=== PATIENT | male | born 1965 | race Caucasian/White ===

== ENCOUNTER 2016-12-01 18:15 | Observation (INO) | payer BC ==
[2016-12-01] MEDS ORDERED: Sodium Chloride 0.9% 1,000 ML PRIMARY IV ONE (18:21)
[2016-12-01] MEDS ORDERED: NITROGLYCERIN 0.4 MG SL TAB (BOTTLE OF 3) SL ONE ×2 (18:21→18:22)
[2016-12-01] MEDS ORDERED: MORPHINE SULFATE 4 MG/1 ML IVP ONE (18:21)
[2016-12-01] MEDS ORDERED: ONDANSETRON 4 MG/2 ML VIAL IVP ONE (18:21)
--- NOTE | 2016-12-01 18:24 | PDOC ---
Chest Pain HPI - General Chief Complaint: Chest Pain Stated Complaint: CHEST PAIN Date Seen by Provider: 12/01/16 Time Seen by Provider: 18:19 Source: Patient, Spouse Exam Limitations: POSITIVE: No limitations Treatment Prior to Arrival: REPORTS: Aspirin Nurse's Notes Reviewed & Considered: Yes - History of Present Illness Initial Comments: This very pleasant 51-year-old male comes in today with a chief complaint of chest pain. Patient with chest pain and shortness of breath that is substernal with radiation into his back and shoulder. He does have associated shortness of breath. His symptoms began yesterday and have continued and escalated today. He did take 4 baby aspirin over the course of the day today. He has a headache, denies cough, he denies any nausea vomiting or diarrhea, no hematuria or dysuria, no rashes. Body Location Affected: REPORTS: Head, Chest Timing: REPORTS: Intermittent, Getting Worse Duration: >24 hours Severity: Moderate Context: REPORTS: Rest Quality: REPORTS: "Pain", Sharpness, Stabbing, Throbbing Radiation: REPORTS: Neck (L), Shoulder (L), Back Associated Symptoms: REPORTS: Shortness of Breath, Hurts to Breathe Modifying Factors: improves with: None Reported Similar Symptoms Previously: No Recently seen/treated/hospitalized: No Any Prior Injuries Related to Current Complaint?: No - Patient Home Medications Home Medications: Home Medications NK [No Home Medications Reported] 12/01/16 - Patient Allergies Allergies/Adverse Reactions: Allergies Allergy/AdvReac Type Severity Reaction Status Date / Time No Known Allergies Allergy Verified 12/01/16 18:41 ROS - Limitations ROS Limitations: No Limitations Constitution: REPORTS: Denies Symptoms Cardiovascular: REPORTS: Chest Pain Respiratory: REPORTS: Hurts To Breathe, Shortness Of Breath Neurological: REPORTS: Headache Gastrointestinal: REPORTS: Denies GI Symptoms Endocrine: REPORTS: Denies Symptoms Musculoskeletal: REPORTS: Denies MS Symptoms Genitourinary: REPORTS: Denies Symptoms Eyes: REPORTS: Denies Symptoms ENT: REPORTS: Denies Symptoms Skin: REPORTS: Denies Skin Symptoms Lympathic: REPORTS: Denies Lympathic Symptoms Immunologic: POSITIVE: Denies Symptoms Psychiatric: POSITIVE: Denies Psych Symptoms Chest Pain PE - General Appearance General Appearance: REPORTS: Alert, Cooperative, No Acute Distress, No Evidence of Trauma - HEENT HEENT: POSITIVE: Head Inspection Nml, Eyes Inspection Nml, Ears Inspection Nml, Nose Inspection Nml, Oral/Dental Inspect. Nml, Pharynx Inspect. Nml, PERRL, EOMI - Neck Neck: REPORTS: Normal Inspection, No Carotid Bruit - Respiratory Respiratory: REPORTS: No Respiratory Distress, Breath Sounds Normal, Chest Non- Tender - Cardiovascular Cardiovascular: REPORTS: Regular Rate and Rhythm, Heart Sounds Normal, Equal Pulses, Strong Pulses, No Murmur, No Gallop, No Friction Rub, No JVD - Abdomen Abdomen: Soft: (All Quadrants), Normal Bowel Sounds: (All Quadrants), Denies Tenderness: (All Quadrants) - Skin Skin: REPORTS: Intact, Normal For Race, Warm, Dry, No Rash - Extremities Extremity: Non-Tender: (All Extremities), Normal ROM: (All Extremities), Normal Inspection: (All Extremities), Pelvis Stable: (All Extremities) - Neurological / Psychological Neurological: POSITIVE: Oriented X3, Motor Normal, Sensation Normal Chest Pain Progress - Results Reviewed by me Xrays/CTs/US Reviewed by me: Yes Discussed with Radiologist: Yes Lab Results Reviewed: Yes Lab Results:: Laboratory Results 12/01/16 12/01/16 12/01/16 Range/Units 18:29 18:30 18:36 WBC 8.40 (4.8-10.8) 10^3/uL RBC 5.45 (4.70-6.10) 10^6/uL Hgb 16.7 (14.0-18.0) g/dL Hct 49.1 (42.0-52.0) % MCV 90.1 H (80-90) FL MCH 30.6 (27-31) PG MCHC 34.0 (33-37) g/dL RDW Std Deviation 42.8 (39-50) fL RDW Coeff of [place] 13.1 (11.5-14.5) % Plt Count 192 (140-350) 10*3/uL MPV 11.4 (7.4-12.2) FL Immature Gran % (Auto) 0.2 (0-5) % Neut % (Auto) 60.0 (50-80) % Lymph % (Auto) 27.7 (10-50) % [place] % (Auto) 7.9 (5-15) % Eos % (Auto) 2.1 (0-8) % Baso % (Auto) 2.1 H (0-1) % Immature Gran # (Auto) 0.02 10*3/UL Neut # (Auto) 5.03 10*3/UL Lymph # (Auto) 2.33 10*3/uL [place] # (Auto) 0.66 (0.3-0.8) 10*3/UL Eos # (Auto) 0.18 10*3/UL Baso # (Auto) 0.18 10*3/UL WBC Morphology Comment Normal morphology (NORM) Plt Morphology Comment Normal morphology (NORM) RBC Morph Comment Normal morphology (NORM) D-Dimer 0.74 H (0.00-0.59) mg/L Sodium 139 (135-145) meq/L Potassium 3.9 (3.8-5.2) meq/L Chloride 103 (98-112) meq/L Carbon Dioxide 25 (23-33) meq/L Anion Gap 11 (5-20) BUN 23 H (7-22) mg/dL Creatinine 1.1 (0.70-1.50) mg/dL Estimated GFR > 60 (>60 ml/min/1.73m(2)) BUN/Creatinine Ratio 20.90 H (6-20) Glucose 180 H (78-110) mg/dL Calculated Osmolality 296.0 H (267-292) mOsm/kg Calcium 9.0 (8.7-10.7) mg/dL Magnesium 2.1 (1.6-2.4) mg/dL Total Bilirubin 0.7 (0.3-1.2) mg/dL AST 45 (21-57) IU/L ALT 56 (21-72) IU/L Alkaline Phosphatase 114 (38-126) IU/L CK-MB (CK-2) 1.75 (0.00-5.00) NG/ML Troponin I 0.025 (< 0.040) ng/mL C-Reactive Protein 0.6 (0.0-0.9) mg/dL NT-Pro-B Natriuret Pep 488 H (0-125) PG/ML Total Protein 7.4 (6.1-8.0) g/dL Albumin 4.2 (3.5-4.8) g/dL Globulin 3.2 (2.50-4.10) g/dL Albumin/Globulin Ratio 1.30 (1.3-2.0) mg/g TSH 2.69 (0.2700-4.2000) uIU/mL Free T4 1.18 (0.93-1.71) ng/dL EKG Interpretation:: POSITIVE: Normal Sinus Rhythm - Patient's Progress Pain Medication Addressed: POSITIVE: Yes Re-Examine Time: 20:44 Status: POSITIVE: Improved MDM / ED Course: Patient was examined, an IV started, blood drawn and sent to lab for studies, radiographic and EKG studies were obtained. Patient's pain did improve and seem to be improved best with positioning. Findings: D-dimer is elevated, CBC is unremarkable, comprehensive metabolic panel shows elevated glucose, EKG shows a sinus rhythm per my interpretation, troponin is normal, TSH is normal. CT for PE protocol results are pending. Assessment: Chest pain with equivocal EKG and cardiac enzyme, positive risk factors. Plan: Admission for chest pain and rule out myocardial infarction. Quality Measure Initiative: CP/AMI: POSITIVE: EKG, ASA Quality Measure Initiative: CAP: POSITIVE: CXR or CT - Consult Consulting MD will see pt:: POSITIVE: In ED, [facility] [place] Admit Counseled: POSITIVE: Patient, Family, RE: Lab Results, RE: Radiology Results, RE : DX Patient Care Time - Estimated PCT Patient Care Time (In Minutes): 45 Vital Signs - Recent Vital Signs Vital Signs: Vital Signs (Last 8 hours) Temp Pulse Resp BP Pulse Ox 12/01/16 18:15 97.5 F 105 H 18 246/179 96 - VS Reviewed Vital Signs Reviewed: Yes Discharge Clinical Impression: Chest pain Discharge Disposition: Admit to Inpatient Condition: Good Follow Up With: NONE,NONE [Primary Care Provider] - Date Decision to Admit to Inpatient: 12/01/16 Time Decision to Admit to Inpatient: 20:28
[2016-12-01] MEDS ORDERED: IPRATROPIUM/ALBUTEROL SULFATE 3 ML NEB NEB ONE (18:36)
[2016-12-01 18:44] LABS: BASOPHILS # (AUTO) 0.18 10*3/UL; BASOPHILS % (AUTO) 2.1 % (0-1); EOSINOPHILS # (AUTO) 0.18 10*3/UL; EOSINOPHILS % (AUTO) 2.1 % (0-8); HEMATOCRIT 49.1 % (42.0-52.0); HEMOGLOBIN 16.7 g/dL (14.0-18.0); LYMPHOCYTES # (AUTO) 2.33 10*3/uL; MEAN CORPUSCULAR HEMOGLOBIN 30.6 PG (27-31); MEAN CORPUSCULAR VOLUME 90.1 FL (80-90); MEAN PLATELET VOLUME 11.4 FL (7.4-12.2); MONOCYTES # (AUTO) 0.66 10*3/UL (0.3-0.8); MONOCYTES % (AUTO) 7.9 % (5-15); NEUTROPHILS # (AUTO) 5.03 10*3/UL; RED BLOOD COUNT 5.45 10^6/uL (4.70-6.10)
[2016-12-01 18:45] LABS: PLATELET MORPHOLOGY COMMENT NORMAL MORPHOLOGY (NORM); RBC MORPHOLOGY COMMENT NORMAL MORPHOLOGY (NORM); WBC MORPHOLOGY COMMENT NORMAL MORPHOLOGY (NORM)
[2016-12-01 18:45] LABS: C-REACTIVE PROTEIN 0.6 mg/dL (0.0-0.9); MAGNESIUM 2.1 mg/dL (1.6-2.4)
[2016-12-01 18:58] LABS: CREATINE KINASE MB 1.75 NG/ML (0.00-5.00); TROPONIN I 0.025 ng/mL (< 0.040)
[2016-12-01 19:05] LABS: FREE T4 (FREE THYROXINE) 1.18 ng/dL (0.93-1.71)
[2016-12-01 19:27] LABS: BLOOD UREA NITROGEN 23 mg/dL (7-22); EST GLOMERULAR FILTRATION > 60 (>60 ml/min/1.73m(2)); SERUM ALBUMIN 4.2 g/dL (3.5-4.8)
--- NOTE | 2016-12-01 21:14 | DI ---
CT CTA CHEST NONCORONARY W/WO,12/01/2016 7:20 PM: Clinical History: Chest pain Previous Exam: None at this facility. Findings: Multiple helically acquired CT images are obtained through the chest following a CT chest angiogram p rotocol, and demonstrate normal pulmonary arteries without filling defect or truncation. The lungs ar e clear. Coronary artery calcifications are seen. Diffuse degenerative changes of the thoracic spine are noted. Impression: 1. No pulmonary embolism. 2. No acute intrathoracic pathology.
[2016-12-01] MEDS ORDERED: LISINOPRIL 10 MG TABLET PO ONE (21:40)
[2016-12-01] MEDS ORDERED: LIDOCAINE W/ SODIUM BICARB 0.5 ML SYR SUBD PRN (21:41)
[2016-12-01] MEDS ORDERED: NORMAL SALINE 10 ML SYRINGE FLUSH IVP PRN (21:41)
[2016-12-01] MEDS ORDERED: CloNIDine Tab 0.1 MG TABLET PO ONE (21:41)
[2016-12-01] MEDS ORDERED: ASPIRIN 81 MG (BABY) CHEWABLE TABLET PO ONE (21:41)
[2016-12-01] MEDS ORDERED: ONDANSETRON 4 MG/2 ML VIAL IVP PRN (21:41)
--- NOTE | 2016-12-01 21:50 | PDOC ---
History and Physical - History of Present Illness History of Present Illness: This very nice 51-year-old gentleman with past medical history of hypertension treated a year ago has stopped all his meds he tells me that the last week his blood pressure was in the 200 range given him some headaches he usually can get this down on his own today he started having the some dull aches in his left chest radiating to his left arm decided to come to ER for further evaluation and treatment. I discussed the lifestyle changes diets and the importance of treating blood pressure with the patient at length in the ER we will be admitting him for a stress test also we will be treating his blood pressure and also the CT scan results were relayed total which was negative for PE he also has some left-sided pain That he really can't explain denies chest pain at present time nausea or vomiting Past Medical History Medical History: Remote history of hypertension Tobacco Use: Current Every Day Smoker Do you dip or chew tobacco: No Substance Use Type: None Medication / Allergies Home Medications: Home Medications Medication Instructions Recorded Confirmed Type NK [No Home Medications Reported] 12/01/16 12/01/16 History Allergies/Adverse Reactions: Allergies Allergy/AdvReac Type Severity Reaction Status Date / Time No Known Allergies Allergy Verified 12/01/16 21:47 Review of Systems - Review of Systems All Systems: Reviewed & No Additional Complaints Except as Stated - Cardiovascular Cardiovascular: REPORTS: Chest Pain - Gastrointestinal Gastrointestinal / Abdominal: DENIES: Negative System Review, Nausea, Vomiting, Diarrhea, Constipation, Abdominal Pain, Bloody Stool, Poor Appetite, Heartburn, Regurgitation, Bloating, Lactose Intolerance, Melena, Bright Red Blood Per Rectum, Other, See HPI - Genitourinary Genitourinary: DENIES: Negative System Review, Pain, Burning, Hematuria, Incontinence, Urgency, Hesitant Stream, Decreased Stream, Nocutria, Discharge, Sexual Dyfunction, Other, See HPI Exam - Vitals Vital Signs: Vital Signs Temperature 97.5 F Temperature Source Temporal Artery Scan Pulse Rate [Pulse Oximeter] 105 Respiratory Rate 18 Blood Pressure [Right Arm] 246/179 Pulse Ox 96 Oxygen Delivery Method Room Air Height 5 ft 10 in Weight 118.75 kg - General General Appearance: POSITIVE: No Acute Distress, Cooperative - Head Head Exam: POSITIVE: Normal Inspection, Normocephalic - Respiratory Respiratory Exam: POSITIVE: Clear to Auscultation - Bilaterally, Breathing Non Labored, Normal To Percussion, Normal to Percussion and Palpation - Cardiovascular Cardiovascular Exam: POSITIVE: RRR, No Murmur, No Clicks, No Gallops - GI/Abdominal GI/Abdominal Exam: POSITIVE: Normal Bowel Sounds, Non Tender, Non Distended, Soft - Extremities Extremities Exam: POSITIVE: No Clubbing Present, No Edema Present, No Cyanosis Present - Neurological Neurological Exam: POSITIVE: Alert, Oriented x 3, CN II-XII Intact Results - Labs CBC and BMP: 12/01/16 18:36 12/01/16 18:30 Labs - Last 24 Hours: Laboratory Results 12/01/16 12/01/16 12/01/16 Range/Units 18:29 18:30 18:36 WBC 8.40 (4.8-10.8) 10^3/uL RBC 5.45 (4.70-6.10) 10^6/uL Hgb 16.7 (14.0-18.0) g/dL Hct 49.1 (42.0-52.0) % MCV 90.1 H (80-90) FL MCH 30.6 (27-31) PG MCHC 34.0 (33-37) g/dL RDW Std Deviation 42.8 (39-50) fL RDW Coeff of [place] 13.1 (11.5-14.5) % Plt Count 192 (140-350) 10*3/uL MPV 11.4 (7.4-12.2) FL Immature Gran % (Auto) 0.2 (0-5) % Neut % (Auto) 60.0 (50-80) % Lymph % (Auto) 27.7 (10-50) % [place] % (Auto) 7.9 (5-15) % Eos % (Auto) 2.1 (0-8) % Baso % (Auto) 2.1 H (0-1) % Immature Gran # (Auto) 0.02 10*3/UL Neut # (Auto) 5.03 10*3/UL Lymph # (Auto) 2.33 10*3/uL [place] # (Auto) 0.66 (0.3-0.8) 10*3/UL Eos # (Auto) 0.18 10*3/UL Baso # (Auto) 0.18 10*3/UL WBC Morphology Comment Normal morphology (NORM) Plt Morphology Comment Normal morphology (NORM) RBC Morph Comment Normal morphology (NORM) D-Dimer 0.74 H (0.00-0.59) mg/L Sodium 139 (135-145) meq/L Potassium 3.9 (3.8-5.2) meq/L Chloride 103 (98-112) meq/L Carbon Dioxide 25 (23-33) meq/L Anion Gap 11 (5-20) BUN 23 H (7-22) mg/dL Creatinine 1.1 (0.70-1.50) mg/dL Estimated GFR > 60 (>60 ml/min/1.73m(2)) BUN/Creatinine Ratio 20.90 H (6-20) Glucose 180 H (78-110) mg/dL Calculated Osmolality 296.0 H (267-292) mOsm/kg Calcium 9.0 (8.7-10.7) mg/dL Magnesium 2.1 (1.6-2.4) mg/dL Total Bilirubin 0.7 (0.3-1.2) mg/dL AST 45 (21-57) IU/L ALT 56 (21-72) IU/L Alkaline Phosphatase 114 (38-126) IU/L CK-MB (CK-2) 1.75 (0.00-5.00) NG/ML Troponin I 0.025 (< 0.040) ng/mL C-Reactive Protein 0.6 (0.0-0.9) mg/dL NT-Pro-B Natriuret Pep 488 H (0-125) PG/ML Total Protein 7.4 (6.1-8.0) g/dL Albumin 4.2 (3.5-4.8) g/dL Globulin 3.2 (2.50-4.10) g/dL Albumin/Globulin Ratio 1.30 (1.3-2.0) mg/g TSH 2.69 (0.2700-4.2000) uIU/mL Free T4 1.18 (0.93-1.71) ng/dL Assessment and Plan - Patient Problems (1) Chest pain Current Visit: Yes Status: Acute Comment: Rule out with negative with troponins every 6 will order Lexiscan stress test for a.m. control his blood pressure give patient one aspirin actually here he took his aspirin today (2) Hypertensive urgency Current Visit: Yes Status: Acute Comment: We'll treat with 0.1 clonidine and lisinopril 40 and monitor on telemetry
[2016-12-01] MEDS ORDERED: LISINOPRIL 10 MG TABLET PO SCH (22:00)
[2016-12-01] MEDS ORDERED: MORPHINE SULFATE 2 MG/1 ML IVP PRN (22:12)
[2016-12-01] MEDS ORDERED: KETOROLAC 15 MG/1 ML VIAL IVP PRN (22:13)
--- NOTE | 2016-12-02 05:41 | EKG ---
[address] [place] [address] Measurements Intervals [place] Rate: 98 P: 53 AL: 150 QRS: -56 QRSD: 100 T: 90 QT: 347 QTc: 403 Interpretive Statements SINUS RHYTHM POSSIBLE LEFT ATRIAL ENLARGEMENT [-0.1mV P WAVE IN V1/V2] PATTERN CONSISTENT WITH PULMONARY DISEASE LEFT ANTERIOR FASCICULAR BLOCK [QRS AXIS <= -45, QR IN I, RS IN II] NONSPECIFIC T-WAVE ABNORMALITY No previous ECG available for comparison Electronically Signed On 12-05-16 07:49:41 MDT by Carl Ty MD [email or web address]
[2016-12-02 06:27] LABS: BASOPHILS # (AUTO) 0.17 10*3/UL; BASOPHILS % (AUTO) 2.1 % (0-1); EOSINOPHILS # (AUTO) 0.21 10*3/UL; EOSINOPHILS % (AUTO) 2.6 % (0-8); HEMATOCRIT 46.1 % (42.0-52.0); HEMOGLOBIN 15.8 g/dL (14.0-18.0); LYMPHOCYTES # (AUTO) 1.74 10*3/uL; MEAN CORPUSCULAR HEMOGLOBIN 31.4 PG (27-31); MEAN CORPUSCULAR HGB CONC 34.3 g/dL (33-37); MEAN CORPUSCULAR VOLUME 91.7 FL (80-90); MEAN PLATELET VOLUME 11.3 FL (7.4-12.2); MONOCYTES # (AUTO) 0.57 10*3/UL (0.3-0.8); MONOCYTES % (AUTO) 7.2 % (5-15); NEUTROPHILS # (AUTO) 5.23 10*3/UL; NEUTROPHILS % (AUTO) 65.8 % (50-80); RED BLOOD COUNT 5.03 10^6/uL (4.70-6.10)
[2016-12-02 06:33] LABS: PLATELET MORPHOLOGY COMMENT NORMAL MORPHOLOGY (NORM); RBC MORPHOLOGY COMMENT NORMAL MORPHOLOGY (NORM); WBC MORPHOLOGY COMMENT NORMAL MORPHOLOGY (NORM)
[2016-12-02 06:38] LABS: BLOOD UREA NITROGEN 21 mg/dL (7-22); CALCIUM 8.5 mg/dL (8.7-10.7); CHOL/HDL RATIO 7.47 RATIO (0-4.0); EST GLOMERULAR FILTRATION > 60 (>60 ml/min/1.73m(2)); HDL CHOLESTEROL 36 mg/dL (40-150); SERUM ALBUMIN 3.5 g/dL (3.5-4.8); SERUM CHOLESTEROL 269 mg/dL (120-200)
[2016-12-02] MEDS ORDERED: LISINOPRIL 20 MG TABLET PO SCH (09:00)
--- NOTE | 2016-12-02 09:01 | DI ---
XR CXR 1VW,12/01/2016 6:21 PM: Clinical History: Chest pain Previous Exam: September 21, 2010 Findings: A single frontal radiograph of the chest is obtained, and demonstrate clear lungs. The cardiomediasti num and bony thorax are unremarkable. Impression: Normal chest.
[2016-12-02] MEDS ORDERED: ONDANSETRON 4 MG/2 ML VIAL IVP PRN (09:38)
[2016-12-02] MEDS ORDERED: LIDOCAINE W/ SODIUM BICARB 0.5 ML SYR SUBD PRN (09:38)
[2016-12-02] MEDS ORDERED: IPRATROPIUM/ALBUTEROL SULFATE 3 ML NEB NEB ONE (10:28)
--- NOTE | 2016-12-02 10:53 | STRESSTEST ---
[facility] Interpretive Statements This is a 51 YO male that presented with chest pain, hypertension, + tobacco, newly diagnosed DMII, and no family history of CAD. The patient presented with a NSR EKG with possible LVH and non specific T wave inversions in aVL. ruled out for [place]. Emy scan stress test done with stress images today, resting images tomorrow. Had SOB and nausea as symptoms with stress component today. Plan: compile stress images and resting images and await radiology interpretation. Electronically Signed On 12-05-16 08:03:14 MDT by Carl Ty MD [id number]
--- NOTE | 2016-12-02 18:12 | PDOC(PROG) ---
Date and Time of Service: 12/02/2016, 1805 Interval History: Patient seen and evaluated twice today. Chest pain has resolved. However, we found that the patient has diabetes, had stopped all medications 9 months ago, and had developed significant mistrust of this provider as the patient wanted a more holistic and empathetic view to his care. He was concerned that he was being given too many pills, not enough lifestyle change interventions to help his health improved. He denied any shortness of breath, nausea or vomiting. He was wheezing at the time of his stress test or prior to that. Objective : Data - Labs CBC and BMP: 12/02/16 06:24 12/02/16 06:24 Labs - Last 24 Hours: Laboratory Results 12/02/16 12/02/16 Range/Units 00:22 06:24 WBC 7.95 (4.8-10.8) 10^3/uL RBC 5.03 (4.70-6.10) 10^6/uL Hgb 15.8 (14.0-18.0) g/dL Hct 46.1 (42.0-52.0) % MCV 91.7 H (80-90) FL MCH 31.4 H (27-31) PG MCHC 34.3 (33-37) g/dL RDW Std Deviation 43.7 (39-50) fL RDW Coeff of [place] 13.3 (11.5-14.5) % Plt Count 165 (140-350) 10*3/uL MPV 11.3 (7.4-12.2) FL Immature Gran % (Auto) 0.4 (0-5) % Neut % (Auto) 65.8 (50-80) % Lymph % (Auto) 21.9 (10-50) % [place] % (Auto) 7.2 (5-15) % Eos % (Auto) 2.6 (0-8) % Baso % (Auto) 2.1 H (0-1) % Immature Gran # (Auto) 0.03 10*3/UL Neut # (Auto) 5.23 10*3/UL Lymph # (Auto) 1.74 10*3/uL [place] # (Auto) 0.57 (0.3-0.8) 10*3/UL Eos # (Auto) 0.21 10*3/UL Baso # (Auto) 0.17 10*3/UL WBC Morphology Comment Normal morphology (NORM) Plt Morphology Comment Normal morphology (NORM) RBC Morph Comment Normal morphology (NORM) D-Dimer 0.76 H (0.00-0.59) mg/L Sodium 139 (135-145) meq/L Potassium 4.0 (3.8-5.2) meq/L Chloride 104 (98-112) meq/L Carbon Dioxide 28 (23-33) meq/L Anion Gap 7 (5-20) BUN 21 (7-22) mg/dL Creatinine 1.0 (0.70-1.50) mg/dL Estimated GFR > 60 (>60 ml/min/1.73m(2)) BUN/Creatinine Ratio 21.00 H (6-20) Glucose 199 H (78-110) mg/dL Mean Blood Glucose 227.020 mg/dL Hemoglobin A1c 9.40 H (4.2-6.0) % Calculated Osmolality 296.0 H (267-292) mOsm/kg Calcium 8.5 L (8.7-10.7) mg/dL Total Bilirubin 0.6 (0.3-1.2) mg/dL AST 27 (21-57) IU/L ALT 55 (21-72) IU/L Alkaline Phosphatase 84 (38-126) IU/L Total Creatine Kinase 71 (55-170) IU/L Troponin I 0.028 0.019 (< 0.040) ng/mL Total Protein 6.3 (6.1-8.0) g/dL Albumin 3.5 (3.5-4.8) g/dL Globulin 2.8 (2.50-4.10) g/dL Albumin/Globulin Ratio 1.20 L (1.3-2.0) mg/g Triglycerides 428 H (44-200) mg/dL Cholesterol 269 H (120-200) mg/dL LDL Cholesterol, Calc 147.400 mg/dL VLDL Cholesterol 85 H (0-40) mg/dL HDL Cholesterol 36 L (40-150) mg/dL Cholesterol/HDL Ratio 7.47 H (0-4.0) RATIO Objective : Exam - General General Appearance: No Acute Distress, Cooperative Additional General Exam Details: Vital Signs - Last Taken Temperature 97.4 F 12/02/16 17:00 Pulse Rate 82 12/02/16 17:00 Respiratory Rate 18 12/02/16 17:00 Blood Pressure 218/127 12/02/16 17:00 Pulse Ox 92 12/02/16 17:00 - Head Head Exam: Normal Inspection, Normocephalic, Atraumatic - Eye Eye Exam: No Scleral Icterus - Respiratory Respiratory Exam: Breathing Non Labored, Wheezes - Cardiovascular Cardiovascular Exam: RRR, No Murmur, No Clicks, No Gallops, No Rubs, No JVD - GI/Abdominal GI/Abdominal Exam: Normal Bowel Sounds, Non Tender, Non Distended, Soft - Extremities Extremities Exam: No Clubbing Present, No Cyanosis Present, +1 Edema - Neurological Neurological Exam: Alert, Oriented x 3, No Facial Droop, Speech Intact / Clear, Moves All Extremities Equally - Psychiatric Psychiatric Exam: Normal Affect, Normal Mood Assessment and Plan - Patient Problems (1) Chest pain Current Visit: Yes Status: Acute (2) Poorly-controlled hypertension Current Visit: Yes Status: Acute (3) Poorly controlled type 2 diabetes mellitus Current Visit: Yes Status: Acute (4) Tobacco abuse Current Visit: Yes Status: Acute (5) Hyperlipidemia associated with type 2 diabetes mellitus Current Visit: Yes Status: Acute (6) Obesity Current Visit: Yes Status: Acute Qualifiers: Obesity type: due to excess calories Obesity severity: non-morbid Qualified Description: Non morbid obesity due to excess calories Qualifier Code(s): (E66.09) Other obesity due to excess calories - Assessment / Plan Additional Assessment/Plan Details: Continue stress testing resting portion tomorrow. Patient and I had a long talk about dietary changes, increasing vegetable intake , cutting out carbohydrates and sugar, lean proteins should be included, and fats from sources such as nuts and organic based salad dressings. Talked about increasing vegetable intake to at least 50% of the plate. Patient would like to do dietary and lifestyle interventions to help treat these problems. He does have erectile dysfunction as well and we'll trial some Viagra samples of discharge. I do think he would benefit from metformin, both in weight loss and blood sugar control, so we'll start that at fairly low dose and see how he does. We are starting to blood pressure medications, Cozaar as it may help treat gout , and also metoprolol given the diabetes. On aspirin, 81 mg, daily. We will help the patient establish with a primary care provider here.
[2016-12-02] MEDS ORDERED: LOSARTAN 50 MG TABLET PO ONE (18:36)
[2016-12-02] MEDS: Metoprolol TARTRATE Tab 25 MG TAB PO SCH (20:48)
[2016-12-02] MEDS ORDERED: Metoprolol TARTRATE Tab 25 MG TAB PO ONE (20:48)
[2016-12-03] MEDS ORDERED: LABETALOL 20 MG/4 ML (5 MG/1 ML) SYRINGE ONE ×2 (00:24→07:24)
[2016-12-03] MEDS: LABETALOL 20 MG/4 ML (5 MG/1 ML) SYRINGE IVP PRN ×2 (00:25→07:23)
[2016-12-03] MEDS: NORMAL SALINE 10 ML SYRINGE FLUSH IVP PRN ×2 (00:26→07:23)
[2016-12-03] MEDS ORDERED: metFORMIN 500 MG TABLET PO SCH (07:00)
[2016-12-03] MEDS ORDERED: LOSARTAN 50 MG TABLET PO SCH ×2 (07:00→21:00)
[2016-12-03] MEDS ORDERED: LOSARTAN 50 MG TABLET PO ONE (07:13)
[2016-12-03] MEDS ORDERED: Metoprolol TARTRATE Tab 25 MG TAB PO ONE (08:26)
[2016-12-03] MEDS ORDERED: ASPIRIN EC 81 MG TABLET PO ONE (08:26)
[2016-12-03] MEDS: Metoprolol TARTRATE Tab 25 MG TAB PO SCH (08:27)
[2016-12-03] MEDS ORDERED: ASPIRIN 325 MG TABLET PO SCH (09:00)
[2016-12-03 12:04] VITALS: RESP 18; TEMP 97.6
--- NOTE | 2016-12-03 12:14 | DI ---
HISTORY: Chest pain. TECHNIQUE: Stress 33.0 mCi sestamibi. Rest 32.0 mCi sestamibi. FINDINGS: There is evidence of a small mild apical anteroseptal reversible defect favored secondary to mild ischemia. Wall motion cannot be evaluated on the basis of this exam. Depressed ejection fraction is demonstrated at 43%. IMPRESSION: 1. Small mild apical anteroseptal reversible defect favored secondary to mild ischemia. 2. Cannot evaluate wall motion. 3. Depressed EF of 43%.
--- NOTE | 2016-12-03 13:25 | DCSUMMARY ---
Hospitalization Summary Admit Date: 12/01/16 Discharge Date: 12/03/16 Primary Diagnosis:: probable coronary artery disease Secondary Diagnosis:: Hypertensive heart disease Hospital Course: This very pleasant 51-year-old male who has hypertension, tobacco abuse, amongst other issues, who presented to the hospital with complaints of chest pain. He ruled out for myocardial infarction, but was found to have uncontrolled diabetes and uncontrolled hyperlipidemia. He was very upset with prior providers giving him nothing but pills and not working on lifestyle and dietary changes to help these medical issues, so he stopped all of his medicines 9 months ago. He is willing to go back on some now, to help control his blood pressure, but is mostly interested in changing his diet, and exercise routines. I would agree with him in this situation. I recommended for his diet that he do increased vegetable intake, dark green leafy vegetables, eliminate sugar, and a eliminate extraneous grains and carbohydrates. I also recommended 20-30 minutes of exercise per day. I recommended that we recheck cholesterol status and diabetes status in the next 3-6 months. If lifestyle changes have not been effective, the patient's primary care provider can adjust medication regimen as appropriate. We did do a stress test, and found that the patient had on a Lexiscan, mild apical anteroseptal reversible defect favored secondary to mild ischemia. Ejection fraction was 43% and wall motion could not be evaluated. 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 I spoke with Dr. Hirsch, a manager adult, who will contact the patient early this next week to make arrangements for heart catheterization. In the meantime, I placed the patient on Cozaar to help with blood pressure and reduce uric acid, I placed him on metoprolol twice daily, aspirin, daily, and also metformin twice daily. Today, no complaints of chest pain, shortness breath, nausea or vomiting. Patient did have a lymph node under the right jaw that was tender, and has had a history of salivary gland infection in the past. I asked him to suck on some hard candies to try and improve this. If it still present in a week he can follow up for that. I do think if blood pressures remain elevated after a week to 2 weeks on his blood pressure medicine above 160, that we should do some testing to make sure there is no secondary causes of hypertension. Thyroid function was normal in the hospital. This can be deferred to the patient's primary care provider. Assessment and Plan: 1. As per discharge assessments noted 2. Disposition: Patient is discharged home. 3. Condition on discharge, stable and improved. 4. Diet: regular diet with increased vegetable intake, decrease carbohydrates 5. Activities: resume normal activities, but instructed to return to the emergency room immediately if chest pain develops 6. Follow-Up: 1. Harish Levi in one week 2. 7. Medications at the Time of Discharge: Home Medications Medication Instructions Recorded Confirmed Type Aspirin 81 mg PO DAILY #90 tablet 12/03/16 Rx Losartan [Cozaar] 50 mg PO BID #60 tab 12/03/16 Rx Metoprolol Tartrate Tab 25 mg PO BID #60 tab 12/03/16 Rx [Lopressor Tab] metFORMIN Tab [Glucophage Tab] 500 mg PO C BK DIN #60 tab 12/03/16 Rx 8. Time, care, counseling and coordination of care for this discharge is greater than 30 minutes. Exam - Vitals Vital Signs: Vital Signs Temperature 97.6 F Temperature Source Temporal Artery Scan Pulse Rate [Apical] 80 Pulse Rate [Pulse Oximeter] 77 Pulse Rate 86 Respiratory Rate 18 Blood Pressure [Right Arm] 189/112 Pulse Ox 94 Oxygen Delivery Method Room Air Height 5 ft 10 in Weight 259 lb 6.4 oz - General General Appearance: POSITIVE: No Acute Distress, Cooperative - Eye Eye Exam: POSITIVE: No Scleral Icterus - Respiratory Respiratory Exam: POSITIVE: Clear to Auscultation - Bilaterally, Breathing Non Labored - Cardiovascular Cardiovascular Exam: POSITIVE: RRR, No Murmur, No Clicks, No Gallops, No Rubs, No JVD - GI/Abdominal GI/Abdominal Exam: POSITIVE: Normal Bowel Sounds, Non Tender, Non Distended, Soft - Extremities Extremities Exam: POSITIVE: No Clubbing Present, No Edema Present, No Cyanosis Present - Neurological Neurological Exam: POSITIVE: Alert, Oriented x 3, No Facial Droop, Speech Intact / Clear, Moves All Extremities Equally - Psychiatric Psychiatric Exam: POSITIVE: Normal Affect, Normal Mood Data Perinent Studies: Laboratory Results 12/01/16 12/01/16 12/01/16 Range/Units 18:29 18:30 18:36 WBC 8.40 (4.8-10.8) 10^3/uL RBC 5.45 (4.70-6.10) 10^6/uL Hgb 16.7 (14.0-18.0) g/dL Hct 49.1 (42.0-52.0) % MCV 90.1 H (80-90) FL MCH 30.6 (27-31) PG MCHC 34.0 (33-37) g/dL RDW Std Deviation 42.8 (39-50) fL RDW Coeff of [place] 13.1 (11.5-14.5) % Plt Count 192 (140-350) 10*3/uL MPV 11.4 (7.4-12.2) FL Immature Gran % (Auto) 0.2 (0-5) % Neut % (Auto) 60.0 (50-80) % Lymph % (Auto) 27.7 (10-50) % [place] % (Auto) 7.9 (5-15) % Eos % (Auto) 2.1 (0-8) % Baso % (Auto) 2.1 H (0-1) % Immature Gran # (Auto) 0.02 10*3/UL Neut # (Auto) 5.03 10*3/UL Lymph # (Auto) 2.33 10*3/uL [place] # (Auto) 0.66 (0.3-0.8) 10*3/UL Eos # (Auto) 0.18 10*3/UL Baso # (Auto) 0.18 10*3/UL WBC Morphology Comment Normal morphology (NORM) Plt Morphology Comment Normal morphology (NORM) RBC Morph Comment Normal morphology (NORM) D-Dimer 0.74 H (0.00-0.59) mg/L Sodium 139 (135-145) meq/L Potassium 3.9 (3.8-5.2) meq/L Chloride 103 (98-112) meq/L Carbon Dioxide 25 (23-33) meq/L Anion Gap 11 (5-20) BUN 23 H (7-22) mg/dL Creatinine 1.1 (0.70-1.50) mg/dL Estimated GFR > 60 (>60 ml/min/1.73m(2)) BUN/Creatinine Ratio 20.90 H (6-20) Glucose 180 H (78-110) mg/dL Mean Blood Glucose mg/dL Hemoglobin A1c (4.2-6.0) % Calculated Osmolality 296.0 H (267-292) mOsm/kg Calcium 9.0 (8.7-10.7) mg/dL Magnesium 2.1 (1.6-2.4) mg/dL Total Bilirubin 0.7 (0.3-1.2) mg/dL AST 45 (21-57) IU/L ALT 56 (21-72) IU/L Alkaline Phosphatase 114 (38-126) IU/L Total Creatine Kinase (55-170) IU/L CK-MB (CK-2) 1.75 (0.00-5.00) NG/ML Troponin I 0.025 (< 0.040) ng/mL C-Reactive Protein 0.6 (0.0-0.9) mg/dL NT-Pro-B Natriuret Pep 488 H (0-125) PG/ML Total Protein 7.4 (6.1-8.0) g/dL Albumin 4.2 (3.5-4.8) g/dL Globulin 3.2 (2.50-4.10) g/dL Albumin/Globulin Ratio 1.30 (1.3-2.0) mg/g Triglycerides (44-200) mg/dL Cholesterol (120-200) mg/dL LDL Cholesterol, Calc mg/dL VLDL Cholesterol (0-40) mg/dL HDL Cholesterol (40-150) mg/dL Cholesterol/HDL Ratio (0-4.0) RATIO TSH 2.69 (0.2700-4.2000) uIU/mL Free T4 1.18 (0.93-1.71) ng/dL 17 12/02/16 Range/Units 00:22 06:24 WBC 7.95 (4.8-10.8) 10^3/uL RBC 5.03 (4.70-6.10) 10^6/uL Hgb 15.8 (14.0-18.0) g/dL Hct 46.1 (42.0-52.0) % MCV 91.7 H (80-90) FL MCH 31.4 H (27-31) PG MCHC 34.3 (33-37) g/dL RDW Std Deviation 43.7 (39-50) fL RDW Coeff of [place] 13.3 (11.5-14.5) % Plt Count 165 (140-350) 10*3/uL MPV 11.3 (7.4-12.2) FL Immature Gran % (Auto) 0.4 (0-5) % Neut % (Auto) 65.8 (50-80) % Lymph % (Auto) 21.9 (10-50) % [place] % (Auto) 7.2 (5-15) % Eos % (Auto) 2.6 (0-8) % Baso % (Auto) 2.1 H (0-1) % Immature Gran # (Auto) 0.03 10*3/UL Neut # (Auto) 5.23 10*3/UL Lymph # (Auto) 1.74 10*3/uL [place] # (Auto) 0.57 (0.3-0.8) 10*3/UL Eos # (Auto) 0.21 10*3/UL Baso # (Auto) 0.17 10*3/UL WBC Morphology Comment Normal morphology (NORM) Plt Morphology Comment Normal morphology (NORM) RBC Morph Comment Normal morphology (NORM) D-Dimer 0.76 H (0.00-0.59) mg/L Sodium 139 (135-145) meq/L Potassium 4.0 (3.8-5.2) meq/L Chloride 104 (98-112) meq/L Carbon Dioxide 28 (23-33) meq/L Anion Gap 7 (5-20) BUN 21 (7-22) mg/dL Creatinine 1.0 (0.70-1.50) mg/dL Estimated GFR > 60 (>60 ml/min/1.73m(2)) BUN/Creatinine Ratio 21.00 H (6-20) Glucose 199 H (78-110) mg/dL Mean Blood Glucose 227.020 mg/dL Hemoglobin A1c 9.40 H (4.2-6.0) % Calculated Osmolality 296.0 H (267-292) mOsm/kg Calcium 8.5 L (8.7-10.7) mg/dL Magnesium (1.6-2.4) mg/dL Total Bilirubin 0.6 (0.3-1.2) mg/dL AST 27 (21-57) IU/L ALT 55 (21-72) IU/L Alkaline Phosphatase 84 (38-126) IU/L Total Creatine Kinase 71 (55-170) IU/L CK-MB (CK-2) (0.00-5.00) NG/ML Troponin I 0.028 0.019 (< 0.040) ng/mL C-Reactive Protein (0.0-0.9) mg/dL NT-Pro-B Natriuret Pep (0-125) PG/ML Total Protein 6.3 (6.1-8.0) g/dL Albumin 3.5 (3.5-4.8) g/dL Globulin 2.8 (2.50-4.10) g/dL Albumin/Globulin Ratio 1.20 L (1.3-2.0) mg/g Triglycerides 428 H (44-200) mg/dL Cholesterol 269 H (120-200) mg/dL LDL Cholesterol, Calc 147.400 mg/dL VLDL Cholesterol 85 H (0-40) mg/dL HDL Cholesterol 36 L (40-150) mg/dL Cholesterol/HDL Ratio 7.47 H (0-4.0) RATIO TSH (0.2700-4.2000) uIU/mL Free T4 (0.93-1.71) ng/dL Patient Problems - Patient Problem List (1) Coronary artery disease Current Visit: Yes Status: Acute Comment: Plan is for cardiology to do heart catheterization this week. Qualifiers: Coronary Disease-Associated Artery/Lesion type: [place] artery [place] vs. transplanted heart: [place] heart Associated angina: with stable angina Qualified Description: Coronary artery disease of [place] artery of [place] heart with stable angina pectoris Qualifier Code(s): (I25.118) Atherosclerotic heart disease of [place] coronary artery with other forms of angina pectoris (2) Poorly-controlled hypertension Current Visit: Yes Status: Acute Comment: Starting on metoprolol and Cozaar. If not reduced in the next 2 weeks , may need to add a third agent. Advised to quit smoking. I recommended that the patient trial nicotine replacement products. And spent some time educating him about those. (3) Poorly controlled type 2 diabetes mellitus Current Visit: Yes Status: Acute Comment: Resuming or starting on metformin. Dietary changes. (4) Tobacco abuse Current Visit: Yes Status: Acute (5) Hyperlipidemia associated with type 2 diabetes mellitus Current Visit: Yes Status: Acute Comment: Recheck in 3 months to see how this has improved on better control diabetes on metformin. Dietary changes. (6) Obesity Current Visit: Yes Status: Acute Qualifiers: Obesity type: due to excess calories Obesity severity: non-morbid Qualified Description: Non morbid obesity due to excess calories Qualifier Code(s): (E66.09) Other obesity due to excess calories (7) Chest pain Current Visit: Yes Status: Resolved
[2016-12-04] MEDS ORDERED: metFORMIN 500 MG TABLET PO SCH (07:00)
--- NOTE | 2016-12-18 11:39 | PDOC(PROG) ---
General Note Progress Note: The patient left his phone number, and I called that 2 days in a row trying to get ahold of him to answer questions, I left the hospitalist phone number for the patient to call back. Patient Problems - Patient Problem List (1) Coronary artery disease Status: Acute Qualifiers: Coronary Disease-Associated Artery/Lesion type: [place] artery [place] vs. transplanted heart: [place] heart Associated angina: with stable angina Qualified Description: Coronary artery disease of [place] artery of [place] heart with stable angina pectoris Qualifier Code(s): (I25.118) Atherosclerotic heart disease of [place] coronary artery with other forms of angina pectoris (2) Poorly-controlled hypertension Status: Acute (3) Poorly controlled type 2 diabetes mellitus Status: Acute (4) Tobacco abuse Status: Acute (5) Hyperlipidemia associated with type 2 diabetes mellitus Status: Acute (6) Obesity Status: Acute Qualifiers: Obesity type: due to excess calories Obesity severity: non-morbid Qualified Description: Non morbid obesity due to excess calories Qualifier Code(s): (E66.09) Other obesity due to excess calories
== END 2016-12-03 13:55 | disposition home or self-care (01) ==
LOC: ER 18:15 → MED/SURG 21:24 → UNDOADMIN 21:24
PROVIDERS: ADMIT Internal Medicine; ATTEND Family Medicine
DX: I25.118 Atherosclerotic heart disease of native coronary artery with other forms of angina pectoris (principal); Z72.0 Tobacco use; I10 Essential (primary) hypertension; E11.65 Type 2 diabetes mellitus with hyperglycemia; E78.5 Hyperlipidemia, unspecified; E66.9 Obesity, unspecified
CPT/HCPCS: 36415 ×2; 71010; 71275; 78452; 80053 ×2; 80061; 82550; 82553; 83036; 83735; 83880; 84439; 84443; 84484 ×2; 85025 ×2; 85379 ×2; 86140; 93005; 93010; 93016; 93017; 93018; 94640; 94761; 96361; 96374; 96375; 99285 ×2; A9500; J2785; J7620 ×2; J2270; J2405; J7030

== ENCOUNTER → 2017-01-24 | Outpatient (CLI) | payer BC ==
[2017-01-24 08:09] LABS: CHOL/HDL RATIO 4.47 RATIO (0-4.0); LDL CHOLESTEROL,CALCULATED 66.2 mg/dL
== END ==
LOC: LAB 07:43
PROVIDERS: ATTEND Physician Assistant Medical
DX: E78.5 Hyperlipidemia, unspecified (principal)
CPT/HCPCS: 36415; 80061